=== PATIENT | male | born 1940 | race Caucasian/White ===

== ENCOUNTER 2025-03-17 04:24 | Emergency (ER) | payer MEDICARE ==
[2025-03-17 05:07] LABS: #Basophils 0.03 10x3/uL (0.0-0.2); #Eosinophils 0.17 10x3/uL (0.0-0.7); #Monocytes 0.80 10x3/uL (0.11-0.59); #Neutrophils 4.02 10x3/uL (1.40-6.50); %Basophils 0.5 % (0.0-1.0); %Eosinophils 2.8 % (0.0-10.0); %Lymphocytes 18.3 % (21.0-51.0); %Monocytes 13.0 % (0.0-10.0); %Neutrophils 65.2 % (42.0-75.0); Hematocrit 28.6 % (42.0-52.0); Hemoglobin 9.1 g/dL (14.0-18.0); Mean Corpuscular Hemoglobin 30.3 pg (27.0-31.0); Mean Corpuscular Volume 95.3 fL (78.0-98.0); Platelet Count 174 10x3/uL (130-400); Red Blood Cell (RBC) Count 3.00 mill/uL (4.70-6.10); White Blood Cell (WBC) Count 6.16 10x3/uL (4.8-10.8)
[2025-03-17 05:22] LABS: ALT (SGPT) 18 U/L (Less than 45); AST (SGOT) 26 U/L (11-34); Albumin 3.5 g/dL (3.1-4.5); Alkaline Phosphatase 50 U/L (40-110); Anion Gap 14 mmol/L (10-20); BUN (Urea Nitrogen) 41 mg/dL (8.4-25.7); Bilirubin, Total 0.3 mg/dL (0.3-1.2); CK (CPK) 225 U/L (30-200); Calc. Creatinine Clearance 0 mL/min (70-130); Calcium 8.4 mg/dL (7.8-10.44); Carbon Dioxide 19 mmol/L (23-31); Chloride 113 mmol/L (98-107); Globulin 2.3 g/dL (2.4-3.5); Glucose 85 mg/dL (83-110); Lipase 29 U/L (8-78); Potassium 4.1 mmol/L (3.5-5.1); Sodium 142 mmol/L (136-145)
[2025-03-17 06:41] LABS: Bacteria/HPF None Seen HPF (None Seen); CAUTI Indications for Culture Alt mental st,lethar; Glucose, Urine (Dipstick) Normal (Negative); Leukocyte Negative Leu/uL (Negative); Protein, Urine (Dipstick) Negative (Neg-Trace); Specific Gravity, Urine 1.011 (1.002-1.036); WBC/HPF 0-3 HPF (0-3)
[2025-03-17 06:44] LABS: Urine Culture Reflex No No
== END 2025-03-17 09:19 ==
LOC: ERS 04:24
DX: F03.911 Unspecified dementia, unspecified severity, with agitation (principal); I10 Essential (primary) hypertension
CPT/HCPCS: 51701; 71045; 80053; 81001; 82140; 82550; 83605; 83690; 85025; 87040; 93005

== ENCOUNTER 2025-04-22 19:22 | Emergency (ER) | payer MEDICARE ==
[2025-04-22 19:45] LABS: #Basophils 0.03 10x3/uL (0.0-0.2); #Eosinophils 0.17 10x3/uL (0.0-0.7); #Monocytes 0.55 10x3/uL (0.11-0.59); #Neutrophils 8.31 10x3/uL (1.40-6.50); %Basophils 0.3 % (0.0-1.0); %Eosinophils 1.7 % (0.0-10.0); %Lymphocytes 10.5 % (21.0-51.0); %Monocytes 5.4 % (0.0-10.0); %Neutrophils 81.9 % (42.0-75.0); Hematocrit 29.5 % (42.0-52.0); Hemoglobin 8.8 g/dL (14.0-18.0); Mean Corpuscular Hemoglobin 29.5 pg (27.0-31.0); Mean Corpuscular Volume 99.0 fL (78.0-98.0); Platelet Count 262 10x3/uL (130-400); Red Blood Cell (RBC) Count 2.98 mill/uL (4.70-6.10); White Blood Cell (WBC) Count 10.15 10x3/uL (4.8-10.8)
[2025-04-22 19:59] LABS: ALT (SGPT) 17 U/L (Less than 45); AST (SGOT) 21 U/L (11-34); Albumin 3.4 g/dL (3.1-4.5); Alkaline Phosphatase 61 U/L (40-110); Anion Gap 12 mmol/L (10-20); BUN (Urea Nitrogen) 31 mg/dL (8.4-25.7); Bilirubin, Total 0.1 mg/dL (0.3-1.2); Calc. Creatinine Clearance 0 mL/min (70-130); Calcium 8.8 mg/dL (7.8-10.44); Carbon Dioxide 22 mmol/L (23-31); Chloride 111 mmol/L (98-107); Globulin 2.9 g/dL (2.4-3.5); Glucose 115 mg/dL (83-110); Magnesium 2.1 mg/dL (1.6-2.6); Potassium 4.3 mmol/L (3.5-5.1); Sodium 141 mmol/L (136-145)
[2025-04-22 22:19] LABS: Bacteria/HPF None Seen HPF (None Seen); Glucose, Urine (Dipstick) Normal (Negative); Leukocyte Negative Leu/uL (Negative); Protein, Urine (Dipstick) Negative (Neg-Trace); RBC/HPF 0-3 HPF (0-3); Specific Gravity, Urine 1.019 (1.002-1.036); WBC/HPF 0-3 HPF (0-3)
[2025-04-22 22:35] LABS: Urine Culture Reflex Yes Yes
[2025-04-22 22:39] LABS: CAUTI Indications for Culture Immunosuppressed
== END 2025-04-23 01:10 | disposition home or self-care (01) ==
LOC: ERS 19:22
DX: R40.4 Transient alteration of awareness (principal); I10 Essential (primary) hypertension; E03.9 Hypothyroidism, unspecified; Z79.82 Long term (current) use of aspirin; Z79.899 Other long term (current) drug therapy
CPT/HCPCS: 71045; 80053; 81001; 83735; 84484; 85025; 87086; 93005